=== PATIENT | male | born 1945 | race African-American/Black ===

== ENCOUNTER 2018-04-20 10:15 | Inpatient (IN) | payer OTHER ==
[~2018-04-20] VITALS: Ht 182.9 cm; Wt 95.3 kg
[2018-04-20 10:15] VITALS: BP 140/71
[2018-04-20] MEDS ORDERED: PRINIVIL20 MG PO (10:41)
[2018-04-20] MEDS ORDERED: ZOCOR20 MG PO (10:41)
[2018-04-20] MEDS ORDERED: AMLODIPINE BESY10 MG PO (10:42)
[2018-04-20] MEDS ORDERED: CARVEDILOL25 MG PO (10:42)
[2018-04-20] MEDS ORDERED: LO-DOSE ASPIRIN81 M1 PO (10:43)
[2018-04-20 10:59] LABS: ABSOLUTE NEUTROPHILS 7.2 thou/uL (1.4-8.2); BASOPHILS 0.8 % (0.0-2.0); EOSINOPHILS 0.4 % (0.0-3.0); HEMATOCRIT 45.7 % (42.0-52.0); HEMOGLOBIN 15.6 gm/dL (14.0-18.0); LYMPHOCYTES 14.5 % (24.0-44.0); MCH 27.9 pg (26.0-34.0); MONOCYTES 6.2 % (1.0-8.0); PLATELET COUNT 137 thou/uL (150-400); POLYS 78.1 % (36.0-66.0); RBC 5.57 mil/uL (4.50-6.00); RDW 14.1 % (10.5-14.5); WBC 9.3 thou/uL (4.0-11.0)
[2018-04-20 11:15] LABS: CALCIUM 9.6 mg/dL (8.5-10.1); CREATININE 1.4 mg/dL (0.7-1.3); POTASSIUM 3.7 mmol/L (3.5-5.1)
[2018-04-20 11:19] LABS: ALBUMIN 4.1 g/dL (3.4-5.0); TOTAL BILIRUBIN 0.6 mg/dL (<0.1-1.0); TROPONIN-I 0.25 ng/mL (<0.06)
[2018-04-20 12:31] VITALS: BP 126/63
[2018-04-20 13:04] VITALS: BP 150/80
[2018-04-20] MEDS ORDERED: TRIAMTERENE/HCT1 CA1 PO (13:32)
[2018-04-20 14:58] VITALS: BP 146/67
--- NOTE | 2018-04-20 16:03 | 2DMMODE ---
[facility] [address] [place] [address] 2 D/M-MODE ECHOCARDIOGRAM Name: MONALISADESHAWN L Room #: 206-P [facility] IN [facility]#: [id number] Admission: 04/20/18 Attend Phys: Marciano Read MD Discharge: Date of : 45 Date of Service: 04/20/18 1603 Report #: [id number] THIS REPORT FOR: //name// APPROVED REPORT Study performed: 04/20/2018 15:31:09 EXAM: Comprehensive 2D, Doppler, and color-flow Echocardiogram Patient Location: Echo lab Room #: 206 Status: routine BSA: 2.18 HR: 63 bpm BP: 146/67 mmHg Rhythm: NSR Other Information Study Quality: Adequate Indications Elevated Troponin Hypertension/HDD 2D Dimensions RVDd: 39.53 mm IVSd: 10.24 (7-11mm) LVOT Diam: 23.05 (18-24mm) LVDd: 59.95 mm PWd: 10.43 (7-11mm) Ascending Ao: 31.71 (22-36mm) LVDs: 44.53 (25-40mm) Aortic Root: 28.86 mm IVC: 10.00 mm Volumes Left Atrial Volume (Systole) Single Plane 4CH: 45.98 mL Single Plane 2CH: 37.10 mL LA ESV Index: 20.00 mL/m2 Aortic Valve AoV Peak Barry.: 1.72 m/s AO Peak Gr.: 11.77 mmHg LVOT Max P.03 mmHg LVOT Max V: 1.00 m/s MAGUI Vmax: 2.44 cm2 Mitral Valve E/A Ratio: 0.7 MV Decel. Time: 286.19 ms [facility] [address] [address] [place] [address] 2 D/M-MODE ECHOCARDIOGRAM Name: DESHAWN SHELDON Room #: 206-P [facility]#: [id number] Admission: 04/20/18 Attend Phys: Marciano Read MD Discharge: Date of : 45 Date of Service: 04/20/18 1603 Report #: [id number] MV E Max Barry.: 0.85 m/s MV A Barry.: 1.15 m/s MV PHT: 83.00 ms IVRT: 110.73 ms Pulmonary Valve PV Peak Barry.: 0.90 m/s PV Peak Gr.: 3.21 mmHg Pulmonary Vein P Vein S: 0.57 m/s P Vein A: 0.33 m/s P Vein D: 0.32 m/s P Vein A Dur.: 106.1 msec P Vein S/D Ratio: 1.78 Left Ventricle Left ventricle is borderline dilated. There is normal left ventricular wall thickness. Left ventricular systolic function is borderline. LVEF is 50-55%. Grade I - abnormal relaxation pattern. Right Ventricle The right ventricle is normal size. The right ventricular systolic function is normal. Atria The left atrium size is normal. The right atrium size is normal. Aortic Valve The aortic valve is normal in structure. No aortic regurgitation is present. There is no aortic valvular stenosis. Mitral Valve The mitral valve is normal in structure. Trace to mild mitral regurgitation. No evidence of mitral valve stenosis. Tricuspid Valve The tricuspid valve is normal in structure. There is no tricuspid valve regurgitation noted. Pulmonic Valve The pulmonary valve is normal in structure. There is no pulmonic valvular regurgitation. Great Vessels The aortic root is normal in size. IVC is normal in size and collapses >50% with inspiration. [facility] [address] [place] [address] 2 D/M-MODE ECHOCARDIOGRAM Name: MONALISADESHAWN Room #: 206-P [facility] IN [facility].#: [id number] Admission: 04/20/18 Attend Phys: Marciano Read MD Discharge: Date of : 45 Date of Service: 04/20/18 1603 Report #: [id number] Pericardium There is no pericardial effusion. <Conclusion> Left ventricle is borderline dilated. LVEF is 50-55%. The aortic valve is normal in structure. The mitral valve is normal in structure. Trace to mild mitral regurgitation. The tricuspid valve is normal in structure. The pulmonary valve is normal in structure. There is no pericardial effusion. <ELECTRONICALLY SIGNED> By: Lauro Cooper MD 04/20/18 1603 1603 1603 Lauro Cooper MD /INF
--- NOTE | 2018-04-20 17:34 | NUR ---
PT ADMITTED FROM ED FOR VERTIGO X 3 DAYS AND REPORTS WORSENED LAST NIGHT...DENIES PAIN..FALL PREC IN PLACE
[2018-04-20 20:15] VITALS: BP 114/67
--- NOTE | 2018-04-20 22:02 | EKG ---
[address] [place] [address] ELECTROCARDIOGRAM REPORT Name: BULL SHELDONALLY Gonzalez Room #: 206-P ADM IN M.R.#: [id number] Admission: 04/20/18 Attend Phys: Marciano Read MD Discharge: Date of : 45 Report #: [id number] THIS REPORT FOR: //name// 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
--- NOTE | 2018-04-20 22:08 | EKG ---
[address] [place] [address] ELECTROCARDIOGRAM REPORT Name: DESHAWN SHELDON Room #: 206-P ADM IN M.R.#: [id number] Admission: 04/20/18 Attend Phys: Marciano Read MD Discharge: Date of : 45 Report #: [id number] THIS REPORT FOR: //name// [facility] Test Date: 2018-04-20 Test Time: 15:08:55 Pat Name: DESHAWN SHELDON Department: Room: 206 P Gender: M Lead Athlete: Tisha HAMMER : 1945 Requested By: Arlet Lawson Order Number: [id number] MD: Lauro Cooper Measurements Intervals [employer] Rate: 60 P: -30 ND: 242 QRS: 42 QRSD: 120 T: 257 QT: 420 QTc: 420 Interpretive Statements Sinus rhythm Prolonged ND interval Incomplete left bundle branch block Nonspecific ST-T wave changes Compared to ECG 03/02/2008 00:15:20 no significant changes Electronically Signed On 04-20-2018 22:08:23 [employer] BAG BUFFER by Lauro Cooper [email or web address] <ELECTRONICALLY SIGNED> By: Lauro Cooper MD 04/20/18 2208 1508 1508 Lauro Cooper MD /EPI
[2018-04-20 23:09] LABS: GLYCOHEMOGLOBIN (HGB A1C) 5.9 % (4.8-5.6)
[2018-04-21] VITALS (7 sets, daily range): BP systolic 103–187; BP diastolic 52–91
[2018-04-21 02:59] LABS: ABSOLUTE NEUTROPHILS 5.3 thou/uL (1.4-8.2); BASOPHILS 0.4 % (0.0-2.0); EOSINOPHILS 1.2 % (0.0-3.0); HEMATOCRIT 41.4 % (42.0-52.0); HEMOGLOBIN 13.7 gm/dL (14.0-18.0); MCH 27.1 pg (26.0-34.0); MCV 82.1 fL (80.0-100.0); MONOCYTES 9.4 % (1.0-8.0); PLATELET COUNT 133 thou/uL (150-400); RBC 5.04 mil/uL (4.50-6.00); RDW 13.7 % (10.5-14.5); WBC 7.8 thou/uL (4.0-11.0)
[2018-04-21 03:05] LABS: ANION GAP 9 mmol/L (7-16); BUN 20 mg/dL (7-18); CALCIUM 8.6 mg/dL (8.5-10.1); CHLORIDE 105 mmol/L (98-107); CHOLESTEROL 145 mg/dL (<200); CO2 27 mmol/L (21-32); CREATININE 1.2 mg/dL (0.7-1.3); GLUCOSE 93 mg/dL (74-106); HDL CHOLESTEROL 39 mg/dL (>40); LDL CHOLESTEROL 72 mg/dL (<100); MAGNESIUM 1.8 mg/dL (1.8-2.4); POTASSIUM 3.4 mmol/L (3.5-5.1); SODIUM 141 mmol/L (136-145); TC:HDL 3.7 Ratio (Not establshd); TRIGLYCERIDE 173 mg/dL (<150); VLDL 35 mg/dL (<40)
--- NOTE | 2018-04-21 04:34 | NUR ---
pt resting quietly in room thru the noc, no c/o pain, voiding per urinal, will con't to monitor per ppoc.
[2018-04-21 05:21] LABS: URINE BILIRUBIN NEGATIVE (Negative); URINE BLOOD NEGATIVE (Negative); URINE CLARITY CLEAR; URINE COLOR YELLOW; URINE GLUCOSE-RANDOM* NEGATIVE (Negative); URINE KETONES NEGATIVE (Negative); URINE LEUKOCYTES-REFLEX NEGATIVE (Negative); URINE NITRITE-REFLEX NEGATIVE (Negative); URINE PROTEIN (DIPSTICK) NEGATIVE (Negative); URINE UROBILINOGEN 0.2 E.U./dl (0.2-1.0)
[2018-04-21 13:10] LABS: T4 (THYROXINE) 5.3 ug/dL (4.5-12.0)
[2018-04-21] MEDS ORDERED: ANTIVERT25 MG PO (16:15)
--- NOTE | 2018-04-21 16:31 | NUR ---
ASSESSMENT DOCUMENTED. PT ALERT AND ORIENTED. DENIED HAVING PAIN. VSS. EVALUATED BY PHYSICAL THERAPIST. SEEN BY DR. GIRON. ORDERS GIVEN TO DISCHARGE PT TO HOME. DISCHARGE INSTRUCTIONS GIVEN TO PT. PT VERBERLIZE UNDERSTANDING.
== END 2018-04-21 17:09 | disposition home or self-care (01) | DRG 682 ==
LOC: ER 10:15 → 2N 12:15 → ENTRNSPT 04-21 16:58 → 2N 04-21 17:09
PROVIDERS: Nurse Practitioner; Nurse Practitioner Family; ADMIT Hospitalist
DX: N17.9 Acute kidney failure, unspecified (principal); J98.59 Other diseases of mediastinum, not elsewhere classified; I10 Essential (primary) hypertension; E78.5 Hyperlipidemia, unspecified; H40.9 Unspecified glaucoma; E07.9 Disorder of thyroid, unspecified; D69.6 Thrombocytopenia, unspecified; Z79.82 Long term (current) use of aspirin; Z79.899 Other long term (current) drug therapy; Z87.891 Personal history of nicotine dependence; D35.00 Benign neoplasm of unspecified adrenal gland
CPT/HCPCS: 10081

== ENCOUNTER 2020-04-23 12:32 | Emergency (ER) | payer OTHER ==
[~2020-04-23] VITALS: Ht 190.5 cm; Wt 84.1 kg
[~2020-04-23 12:32] MED LIST: AMLODIPINE BESY10 MG PO; ANTIVERT25 MG PO; CARVEDILOL25 MG PO; LO-DOSE ASPIRIN81 M1 PO; PRINIVIL20 MG PO; TRIAMTERENE/HCT1 CA1 PO; ZOCOR20 MG PO
[2020-04-23 13:45] LABS: ABSOLUTE NEUTROPHILS 7.6 thou/uL (1.4-8.2); BASOPHILS 0.4 % (0.0-2.0); HEMATOCRIT 32.9 % (42.0-52.0); HEMOGLOBIN 10.4 gm/dL (14.0-18.0); LYMPHOCYTES 12.1 % (24.0-44.0); MCH 26.3 pg (26.0-34.0); MCHC 31.7 g/dL (28.0-37.0); MCV 82.9 fL (80.0-100.0); MONOCYTES 8.2 % (1.0-8.0); PLATELET COUNT 277 thou/uL (150-400); POLYS 78.3 % (36.0-66.0); RBC 3.97 mil/uL (4.50-6.00); RDW 15.3 % (10.5-14.5); WBC 9.8 thou/uL (4.0-11.0)
[2020-04-23 13:50] LABS: ANION GAP 6 mmol/L (7-16); BUN 15 mg/dL (7-18); CALCIUM 9.2 mg/dL (8.5-10.1); CHLORIDE 105 mmol/L (98-107); CO2 27 mmol/L (21-32); CREATININE 1.1 mg/dL (0.7-1.3); GLUCOSE 118 mg/dL (74-106); SODIUM 138 mmol/L (136-145)
[2020-04-23 13:56] LABS: ALBUMIN 2.5 g/dL (3.4-5.0); DIRECT BILIRUBIN < 0.1 mg/dL (<0.1-0.2); LIPASE 727 U/L (73-393); SGOT 34 U/L (15-37); SGPT 32 U/L (16-63); TOTAL BILIRUBIN 0.4 mg/dL (0.2-1.0); TOTAL PROTEIN 6.9 g/dL (6.4-8.2)
--- NOTE | 2020-04-23 14:23 | EKG ---
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 LUIS : 1945 Requested By: Can Chapman Order Number: [id number] MD: Juventino Mcnulty Measurements Intervals Gerald Rate: 74 P: -25 WA: 209 QRS: 27 QRSD: 114 T: 200 QT: 378 QTc: 420 Interpretive Statements Sinus rhythm Ventricular preexcitation(WPW) Compared to ECG 04/20/2018 15:08:55 First degree AV block no longer present Left bundle-branch block no longer present ST (T wave) deviation no longer present Electronically Signed On 04-23-2020 14:23:05 TEST K[employer] HOME ECONOMIST by Juventino Mcnulty [email or web address] <ELECTRONICALLY SIGNED> By: Juventino Mcnulty MD, [facility] 04/23/20 1423 1250 1250 Juventino Mcnulty MD, [facility] /EPI
[2020-04-23] MEDS ORDERED: LIDODERM1 EACH TOP (14:52)
[2020-04-23] MEDS ORDERED: FLOMAX0.4 MG PO (14:52)
[2020-04-23] MEDS ORDERED: FISH OIL 1,0001 EAC1 PO (14:52)
[2020-04-23] MEDS ORDERED: FOLIC ACID1 MG PO (14:52)
[2020-04-23] MEDS ORDERED: SUPER THERAVIT1 EACH PO (14:53)
[2020-04-23] MEDS ORDERED: OYSTER SHELL C500 MG PO (14:58)
[2020-04-23] MEDS ORDERED: KLOR-CON 10 ER10 MEQ PO (14:59)
[2020-04-23] MEDS ORDERED: MIRALAX119 GM PO (14:59)
[2020-04-23] MEDS ORDERED: VITAMINE B-1100 MG PO (15:00)
[2020-04-23] MEDS ORDERED: CRESTOR5 MG PO (15:00)
[2020-04-23] MEDS ORDERED: VITAMINC500 PO (15:00)
[2020-04-23] MEDS ORDERED: ZINC SULFATE220 MG PO (15:01)
[2020-04-23 15:31] LABS: URINE BILIRUBIN NEGATIVE (Negative); URINE BLOOD NEGATIVE (Negative); URINE CLARITY CLEAR; URINE COLOR YELLOW; URINE GLUCOSE-RANDOM* NEGATIVE (Negative); URINE KETONES NEGATIVE (Negative); URINE LEUKOCYTES-REFLEX NEGATIVE (Negative); URINE NITRITE-REFLEX NEGATIVE (Negative); URINE PROTEIN (DIPSTICK) NEGATIVE (Negative); URINE SPECIFIC GRAVITY <= 1.005 (1.005-1.035); URINE UROBILINOGEN 0.2 E.U./dl (0.2-1.0)
[2020-04-23 22:20] VITALS: BP 116/62
== END 2020-04-23 22:22 ==
LOC: ER 12:32
PROVIDERS: Nurse Practitioner
DX: R74.8 Abnormal levels of other serum enzymes (principal); R41.82 Altered mental status, unspecified; R11.0 Nausea; I10 Essential (primary) hypertension; E78.5 Hyperlipidemia, unspecified; I25.10 Atherosclerotic heart disease of native coronary artery without angina pectoris; K21.9 Gastro-esophageal reflux disease without esophagitis; I73.9 Peripheral vascular disease, unspecified; I12.9 Hypertensive chronic kidney disease with stage 1 through stage 4 chronic kidney disease, or unspecified chronic kidney disease; N18.9 Chronic kidney disease, unspecified; Z86.14 Personal history of Methicillin resistant Staphylococcus aureus infection; Z79.899 Other long term (current) drug therapy; Z20.828 Contact with and (suspected) exposure to other viral communicable diseases